=== PATIENT | female | born 1990 | race Caucasian/White ===

== ENCOUNTER 2017-03-30 01:59 | Emergency (ER) | payer MEDICAID ==
[2017-03-30] MEDS: ALBUTEROL 0.5% (NEB) 2.5 MG/0.5 ML AMP INH (04:04)
[2017-03-30] MEDS: IPRATROPIUM (NEB) 0.5 MG/2.5 ML AMP INH (04:05)
[2017-03-30] MEDS: METHYLPREDNISOLONE 125 MG INJ IV (04:22)
[2017-03-30] MEDS: SOD CHLORIDE 0.9% 1,000 ML IV (04:23)
[2017-03-30] MEDS: MAGNESIUM SULFATE 2 GM/50 ML 50 ML IVPB (04:23)
== END 2017-03-30 06:42 | disposition home or self-care (01) ==
LOC: FTE 01:59
DX: J45.41 Moderate persistent asthma with (acute) exacerbation (principal)
CPT/HCPCS: 36415; 94644; 96374; 96375; 99284-25

== ENCOUNTER 2017-09-11 13:38 | Emergency (ER) | payer MEDICAID ==
[2017-09-11] MEDS: IBUPROFEN 800 MG TAB PO (15:34)
== END 2017-09-11 16:12 | disposition left against medical advice (07) ==
LOC: FTE 16:12
DX: K08.89 Other specified disorders of teeth and supporting structures (principal); J45.909 Unspecified asthma, uncomplicated
CPT/HCPCS: 99284; Z7502